=== PATIENT | male | born 1975 | race Caucasian/White ===

== ENCOUNTER 2017-07-13 15:44 | Emergency (ER) | payer OTHER, MEDICARE ==
[~2017-07-13] VITALS: Ht 188 cm; Wt 111.1 kg
[~2017-07-13 15:44] MED LIST: CLONAZEPAM1 M2 PO; IBUPROFEN800 M1 PO; MORPHINE SULFAT15 M4; MORPHINE SULFAT30 M3; OXYCODONE HCL30 M1 PO; OXYCONTIN30 M1 PO
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
[2017-07-13 18:25] VITALS: BP 152/80
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
--- NOTE | 2017-07-13 18:31 | RADIOLOGY REPORT ---
EXAMINATION: XR RIBS, LEFT CLINICAL INFORMATION: Left lateral fifth and sixth rib pain. COMPARISON: None TECHNIQUE: 4 views of the left ribs including frontal view of the chest FINDINGS: Lungs are clear. No consolidation, pneumothorax, or pleural effusion. The cardiomediastinal silhouette and pulmonary vasculature are normal. Left RIBS: There is deformity of the posterior aspect of the left sixth rib most compatible with old fracture. IMPRESSION: Old left sixth rib fracture. No acute fracture identified. Lungs clear. No pneumothorax.
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
[2017-07-13] MEDS ORDERED: OXYCODONE HCL5 M1 PO (18:49)
== END 2017-07-13 18:59 ==
LOC: ERH 15:44
DX: M54.2 Cervicalgia (principal); M54.5 Low back pain; R07.81 Pleurodynia; M79.671 Pain in right foot; V89.2XXA Person injured in unspecified motor-vehicle accident, traffic, initial encounter; Y92.410 Unspecified street and highway as the place of occurrence of the external cause
CPT/HCPCS: 71100-LT; 72050; 73630-RT